=== PATIENT | male | born 2000 | race Caucasian/White ===

== ENCOUNTER 2025-01-26 05:48 | Day surgery (SDC) | payer BC, SELFPAY ==
[2025-01-26] VITALS (8 sets, daily range): BP systolic 103–132; BP diastolic 61–79; BMI 24.3
[2025-01-26] MEDS: TYLENOL 1000 MG PO (06:16)
[2025-01-26] MEDS: NORMOSOL-R/PLASMALYTE-A 1000 IV (06:31)
--- NOTE | 2025-01-26 07:01 | W.SUR.PREOP ---
Pre-Operative Surgical Note
-
I have examined this patient prior to the performance of the scheduled procedure.
The patient's condition is unchanged from the time of the current History and
Physical and the patient is able to undergo the scheduled procedure.
--- NOTE | 2025-01-26 07:01 | HP.FOC2 ---
Focused History & Physical
Chief Complaint
HPI:
Chief Complaint: Left inguinal hernia
HPI / Indication for Planned Procedure: This is a 24-year-old male who presents with a symptomatic left inguinal hernia. Will plan for a laparoscopic left inguinal hernia repair with mesh.
Relevant Past Medical History: Negative
Relevant Social History: Negative
Relevant Family History: Negative
Relevant Past Surgical History: Negative
Review of Systems
Review of Pertinent Systems: All Systems Negative
Medication
See Medication form for detailed medications: Yes
Medication List (including Herbals & OTC):
fluticasone propionate 50 mcg/actuation nasal spray,suspension 1 spray intranasal DAILY PRN allergies 01/24/25
ibuprofen 200 mg capsule 400 mg PO Q6H PRN pain 01/24/25
Medications Reviewed: Yes
Allergies and Reactions
Patient has Allergies: No
Noted Allergies and Reactions:
Allergy/AdvReac Type Severity Reaction Status Date / Time
No Known Allergies Allergy Verified 01/26/25 06:10
Pertinent Physical Exam
All Other Systems: Negative
Head/Neck: Normal
Diagnosis / Assessment
This is a 24-year-old male who presents with a symptomatic left inguinal hernia.
Plan / Procedure
Will plan for a laparoscopic left inguinal hernia repair with mesh.
Anesthesia/Sedation to be done by Anesthesia Provider: Yes
--- NOTE | 2025-01-26 08:54 | W.IMMPOSTOP ---
Surgical Immed Post Op Note
-
Primary Surgeon: Real Partida MD
Assisting Surgeon: None
Pre-op Diagnosis: Left inguinal hernia
Post-op Diagnosis: Left inguinal hernia, spermatic cord lipoma
Procedure Performed:
1. Laparoscopic left inguinal hernia repair with mesh (PERRY approach)
2. Excision of lesion of a spermatic cord lipoma (32788�59)
Anesthesia Type: General
Specimen / Cultures: Cord lipoma
Estimated Blood Loss: 7 cc
Complications: None
Operative Findings: Small left indirect defect reduced off of the cord structures. Moderate size lipoma of the spermatic cord identified, reduced off of the cord structures and ligated at its base. Removed. After achieving the critical view of
the MPO the space was reinforced with a large left Bard 3D max uncoated polypropylene mid weight mesh. No tacks used.
--- NOTE | 2025-01-26 08:57 | OR.RPT ---
Operative Report
Operative Report
Patient Name: Layo Blanton
: 2000
Date of Operation: 01/26/2025
Preoperative Diagnosis: Reducible Inguinal hernia, left
Postoperative Diagnosis: Left inguinal hernia, cord lipoma
Procedure(s):
1. Laparoscopic Inguinal Hernia Repair, (TEP approach)
2. Excision of lesion of a spermatic cord lipoma (22835�59)
Surgeon(s):
Dr. Partida
Front Worker(s):
MISAEL Miranda
Anesthesia: General
Estimated Blood Loss: 7 cc
Urine Output: None
Drains/Lines/Implants: Large 3D Max Bard Soft Mesh
Specimens: Cord lipoma
Indication for surgery: The patient has a history of groin pain and noted on exam to have a Left inguinal Hernia(s). Following review of therapeutic options they elected to undergo a minimally invasive repair.
Operative Findings: Small left indirect defect reduced off of the cord structures. Moderate size lipoma of the spermatic cord identified, reduced off of the cord structures and ligated at its base. Removed. After achieving the critical view of
the MPO the space was reinforced with a large left Bard 3D max uncoated polypropylene mid weight mesh. No tacks used.
Details of the operation:
After inducing general anesthesia and endotracheal intubation, the patient was prepped and draped in the supine position with both arms tucked. After infiltration with 0.25% Marcaine, a left periumbilical incision was made. Dissection was carried
down to the anterior sheath which was incised and the rectus muscle retracted laterally. An origin balloon was then inserted in through the posterior portion of the rectus into the preperitoneal space. This was insufflated under direct vision and
blunt dissection was therefore achieved in the preperitoneal space. The balloon was then removed and a 12mm Balloon trocar was placed. Two 5-mm ports were also placed in the midline below the camera port. Blunt dissection was used to dissect the
myopectineal orifice with care not to injure the epigastric vessels, gonadals or spermatic cord. Blunt dissection was used to identify the direct, indirect, and femoral spaces.
The cord was inspected and an indirect hernia sac was noted and reduced.
There was no weakness in the direct space floor.
There was no femoral herniation.
There was an additional lesion/cord lipoma along the cord structures laterally which would prevent the mesh lying flat so this was dissected off the spermatic cord and resected at the base. This was removed as a specimen.
A large 3D max mesh mid weight was then placed into position and positioned into the appropriate area to cover all 3 defects. No tacks were used.
The area was then completely infiltrated with 30 cc of Marcaine without epinephrine (0.25%). The insufflation was slowly decreased and the mesh was assured to be in proper position with desufflation. The Michael trocar site was also closed with 0
PDS suture in a [id number] fashion. The skin sites were all then closed with running subcuticular 4-0 Monocryl suture followed by dermabond. Inspection of the scrotum revealed both testes to be in position. The patient returned to the
recovery room in stable condition. Sponge and instrument counts were correct.
I was the attending physician and performed the procedure with assistance of the PA above. The assistance of MISAEL Miranda was required due to the complexity of the procedure. During the procedure Belinda assisted with port placement, instrument
and needle exchanges, and closure of the wound. I was present for all portions of the case, excluding skin closure.
Real Partida MD
== END 2025-01-26 10:25 | disposition home or self-care (01) ==
LOC: SDS 05:48
PROVIDERS: ATTENDING PHYSICIAN Surgery
DX: K40.90 Unilateral inguinal hernia, without obstruction or gangrene, not specified as recurrent (principal)
CPT/HCPCS: 49650; 88304; C1781